=== PATIENT | male | born 1960 | race Asian ===

== ENCOUNTER 2022-11-12 12:31 | Emergency (ER) | payer OTHER ==
[~2022-11-12] VITALS: Ht 167.6 cm; Wt 75.0 kg
[2022-11-12 13:57] LABS: HEMATOCRIT. 41.6 % (42.0-52.0); HEMOGLOBIN. 13.9 g/dL (14.0-18.0); MEAN CORPUSCULAR HEMOGLOBIN 30.2 pg (28.0-32.0); MEAN CORPUSCULAR VOLUME 90.2 fL (80.0-94.0); MEAN PLATELET VOLUME 11.6 fl (7.4-10.4); PLATELET 204 x1000/uL (130-400); RED BLOOD CELL COUNT 4.61 mill/uL (4.7-6.1); RED CELL DISTRIBUTION WIDTH 14.3 % (11.6-14.6)
[2022-11-12 14:05] LABS: CHLORIDE 98 mEq/L (98-107)
[2022-11-12 14:19] LABS: PLATELET ESTIMATE NORMAL
[2022-11-12] MEDS ORDERED: ONDANSETRON 4MG ODT PO STA (15:28)
[2022-11-12] MEDS ORDERED: ACETAMINOPHEN 325MG TABLET PO STA (15:28)
[2022-11-12 15:32] LABS: CLARITY URINE CLEAR (CLEAR); COLOR URINE YELLOW (YELLOW); KETONES URINE TRACE (NEGATIVE); LEUKOCYTE ESTERASE URINE NEGATIVE (NEGATIVE); NITRITE URINE NEGATIVE (NEGATIVE); OCCULT BLOOD URINE 2+ (NEGATIVE); PROTEIN URINE 3+ (NEGATIVE); SPECIFIC GRAVITY URINE 1.028 (1.005-1.030)
[2022-11-12] MEDS ORDERED: IBUP-2029 MT (18:13)
[2022-11-12 18:23] VITALS: BP 160/78
== END 2022-11-12 18:24 | disposition home or self-care (01) ==
LOC: ER 12:31
DX: R10.33 Periumbilical pain (principal)
CPT/HCPCS: 36415; 74176; 80053; 81003; 85025; 99284; Q0162

== ENCOUNTER 2022-12-26 12:56 | Emergency (ER) | payer OTHER ==
[~2022-12-26] VITALS: Ht 180.3 cm; Wt 63.5 kg
[~2022-12-26 12:56] MED LIST: IBUP-2029 MT; INSU100I28 SQ; LEVO750T68 MT; METR-167 MT
[2022-12-26 13:15] VITALS: BP 181/111; PULSE 88; RESP 16; TEMP 98.1; O2SAT 96
[2022-12-26 13:56] LABS: BASOPHILS % 0.8 % (0.0-2.0); EOSINOPHILS % 6.7 % (0.0-5.0); HEMATOCRIT. 38.8 % (42.0-52.0); LYMPHOCYTES % 32.9 % (20.0-50.0); MEAN CORPUSCULAR HEMOGLOBIN 29.2 pg (28.0-32.0); MEAN CORPUSCULAR VOLUME 87.5 fL (80.0-94.0); MEAN PLATELET VOLUME 9.2 fl (7.4-10.4); NEUTROPHILS % 52.6 % (40.0-76.0); PLATELET 225 x1000/uL (130-400); RED BLOOD CELL COUNT 4.44 mill/uL (4.7-6.1); RED CELL DISTRIBUTION WIDTH 15.9 % (11.6-14.6)
[2022-12-26 14:01] LABS: CHLORIDE 106 mEq/L (98-107)
== END 2022-12-26 16:47 | disposition home or self-care (01) ==
LOC: ER 12:56
DX: Z48.01 Encounter for change or removal of surgical wound dressing (principal)
CPT/HCPCS: 36415; 80053; 85025; 99283